=== PATIENT | female | born 1985 | race Caucasian/White ===

== ENCOUNTER 2020-10-21 16:24 | Inpatient (IN) | payer OTHER ==
[2020-10-21 18:00] VITALS: BMI 25.9
[2020-10-21] MEDS ORDERED: MAGNESIUM HYDROX 2400MG/30ML ORAL SUSPENSION 30 ML CUP PO PRN (19:36)
[2020-10-21] MEDS ORDERED: BISMUTH SUBSALICYLATE 524 MG/30 ML PO PRN (19:36)
[2020-10-21] MEDS ORDERED: MAG HYDROX/AL HYDROX/SIMETH 30 ML UNIT-DOSE CUP PO PRN (19:36)
[2020-10-21] MEDS ORDERED: IBUPROFEN 400 MG TABLET (FP) PO PRN (19:36)
[2020-10-21] MEDS ORDERED: METHOCARBAMOL 500 MG TABLET PO PRN (19:36)
[2020-10-21] MEDS ORDERED: MENTHOL/PHENOL 1 EACH UD MM PRN (19:36)
[2020-10-21] MEDS ORDERED: diazePAM 5 MG TABLET PO ONE (19:36)
[2020-10-21] MEDS ORDERED: MAGNESIUM CITRATE 300 ML BOTTLE PO PRN (19:36)
[2020-10-21] MEDS ORDERED: ACETAMINOPHEN 325 MG TABLET (FP) PO PRN ×2 (19:36)
[2020-10-21] MEDS: MELATONIN 5 MG TABLETS PO SCH (21:15)
[2020-10-21] MEDS: CLINDAMYCIN HCL 150 MG CAPSULE (FP) PO SCH (21:15)
[2020-10-21] MEDS: hydrOXYzine PAMOATE 25 MG CAPSULE (FP) PO SCH (21:15)
[2020-10-21] MEDS: THIAMINE HCL 100 MG TABLET (FP) PO SCH (21:15)
[2020-10-21] MEDS: NICOTINE 14 MG/24 HOURS TOPICAL PATCH TD SCH (21:18)
[2020-10-21] MEDS: PRENATAL VITAMINS W/ FOLIC ACID TABLET (FP) PO SCH (21:18)
[2020-10-21] MEDS: diazePAM 5 MG TABLET PO SCH (22:16)
[2020-10-22] MEDS: diazePAM 5 MG TABLET PO SCH ×4 (06:09→22:49)
[2020-10-22] MEDS: CLINDAMYCIN HCL 150 MG CAPSULE (FP) PO SCH ×3 (06:10→22:49)
[2020-10-22] MEDS: hydrOXYzine PAMOATE 25 MG CAPSULE (FP) PO SCH ×5 (06:10→22:49)
[2020-10-22 10:01] LABS: HEMOGLOBIN 9.7 GM/dL (10.7-15.3); MCH 25.1 pg (25.7-33.7); MCHC 32.1 g/dl (32.0-36.0); MEAN CELL VOLUME 78.1 fl (80-96); MEAN PLT VOLUME 8.5 fl (7.5-11.1); PLATELET COUNT 176 K/MM3 (134-434); RBC 3.85 M/mm3 (3.60-5.2); RDW 22.7 % (11.6-15.6); WHITE BLOOD COUNT 5.6 K/mm3 (4.0-10.0)
[2020-10-22 10:23] LABS: ALBUMIN 2.6 g/dl (3.4-5.0); BLOOD UREA NITROGEN 10.4 mg/dL (7-18)
[2020-10-22 10:25] LABS: CALCIUM 7.9 mg/dL (8.5-10.1)
[2020-10-22 10:26] LABS: CREATININE 0.7 mg/dL (0.55-1.3)
[2020-10-22 10:28] LABS: BILIRUBIN,TOTAL 0.5 mg/dL (0.2-1)
[2020-10-22 10:30] LABS: TOT PROT 5.3 g/dl (6.4-8.2)
[2020-10-22 10:59] LABS: HIV INTERPRETATION NEGATIVE (NEGATIVE)
[2020-10-22] MEDS: NICOTINE 14 MG/24 HOURS TOPICAL PATCH TD SCH (11:00)
[2020-10-22] MEDS: PRENATAL VITAMINS W/ FOLIC ACID TABLET (FP) PO SCH (11:00)
[2020-10-22] MEDS: diazePAM 5 MG TABLET PO PRN (15:22)
[2020-10-22] MEDS: FERROUS SO4 325 MG TABLET (FP) PO SCH (17:59)
[2020-10-22] MEDS: THIAMINE HCL 100 MG TABLET (FP) PO SCH (22:49)
[2020-10-22] MEDS: MELATONIN 5 MG TABLETS PO SCH (22:49)
[2020-10-22] MEDS: CALCIUM 500MG/VIT-D 200 UNITS COMBO TABLET (FP) PO SCH (22:49)
[2020-10-23] MEDS: CLINDAMYCIN HCL 150 MG CAPSULE (FP) PO SCH ×3 (05:11→22:26)
[2020-10-23] MEDS: diazePAM 5 MG TABLET PO SCH ×3 (05:11→22:26)
[2020-10-23] MEDS: hydrOXYzine PAMOATE 25 MG CAPSULE (FP) PO SCH ×5 (05:13→22:26)
[2020-10-23] MEDS: ONDANSETRON *ODT* 4 MG TABLET SL PRN (05:14)
[2020-10-23] MEDS: FERROUS SO4 325 MG TABLET (FP) PO SCH ×3 (08:25→17:48)
[2020-10-23] MEDS: ARIPiprazole 2 MG TABLET PO SCH (10:44)
[2020-10-23] MEDS: CALCIUM 500MG/VIT-D 200 UNITS COMBO TABLET (FP) PO SCH ×2 (10:44→22:26)
[2020-10-23] MEDS: PRENATAL VITAMINS W/ FOLIC ACID TABLET (FP) PO SCH (10:44)
[2020-10-23] MEDS: NICOTINE POLACRILEX 2 MG GUM BUC PRN ×2 (10:45→19:55)
[2020-10-23] MEDS: diazePAM 5 MG TABLET PO PRN (10:47)
[2020-10-23] MEDS: NICOTINE 14 MG/24 HOURS TOPICAL PATCH TD SCH (10:58)
[2020-10-23] MEDS: THIAMINE HCL 100 MG TABLET (FP) PO SCH (22:26)
[2020-10-23] MEDS: MELATONIN 5 MG TABLETS PO SCH (22:27)
[2020-10-24] MEDS: hydrOXYzine PAMOATE 25 MG CAPSULE (FP) PO SCH ×5 (06:06→21:46)
[2020-10-24] MEDS: diazePAM 5 MG TABLET PO SCH ×2 (06:06→17:31)
[2020-10-24] MEDS: CLINDAMYCIN HCL 150 MG CAPSULE (FP) PO SCH ×3 (06:06→21:45)
[2020-10-24] MEDS: FERROUS SO4 325 MG TABLET (FP) PO SCH ×3 (07:56→17:31)
[2020-10-24] MEDS: CALCIUM 500MG/VIT-D 200 UNITS COMBO TABLET (FP) PO SCH ×2 (10:15→21:45)
[2020-10-24] MEDS: ARIPiprazole 2 MG TABLET PO SCH (10:15)
[2020-10-24] MEDS: NICOTINE 14 MG/24 HOURS TOPICAL PATCH TD SCH (10:15)
[2020-10-24] MEDS: PRENATAL VITAMINS W/ FOLIC ACID TABLET (FP) PO SCH (10:16)
[2020-10-24] MEDS: NICOTINE POLACRILEX 2 MG GUM BUC PRN ×3 (13:48→18:59)
[2020-10-24] MEDS: ONDANSETRON *ODT* 4 MG TABLET SL PRN (17:34)
[2020-10-24] MEDS: THIAMINE HCL 100 MG TABLET (FP) PO SCH (21:45)
[2020-10-24] MEDS: MELATONIN 5 MG TABLETS PO SCH (21:45)
[2020-10-25] MEDS ORDERED: diazePAM 5 MG TABLET PO ONE (06:00)
[2020-10-25] MEDS: CLINDAMYCIN HCL 150 MG CAPSULE (FP) PO SCH (06:06)
[2020-10-25] MEDS: hydrOXYzine PAMOATE 25 MG CAPSULE (FP) PO SCH (06:06)
[2020-10-25] MEDS: NICOTINE POLACRILEX 2 MG GUM BUC PRN (09:34)
[2020-10-25 09:48] VITALS: BP 110/78; PULSE 65; TEMP 97.8
== END 2020-10-25 09:57 | disposition home or self-care (01) | DRG 775 ==
LOC: YASAS 16:24 → Y6N 20:18
PROVIDERS: ADMIT Allergy & Immunology; ATTEND Allergy & Immunology
PROC: HZ2ZZZZ Detoxification Services for Substance Abuse Treatment (ICD-10-PCS; principal; 2020-10-21)
DX: F10.230 Alcohol dependence with withdrawal, uncomplicated (principal); F12.10 Cannabis abuse, uncomplicated; F16.10 Hallucinogen abuse, uncomplicated; F17.210 Nicotine dependence, cigarettes, uncomplicated; F19.24 Other psychoactive substance dependence with psychoactive substance-induced mood disorder; F31.9 Bipolar disorder, unspecified; F43.10 Post-traumatic stress disorder, unspecified; D64.9 Anemia, unspecified; E83.51 Hypocalcemia; E28.2 Polycystic ovarian syndrome; L40.9 Psoriasis, unspecified; M32.9 Systemic lupus erythematosus, unspecified; M41.9 Scoliosis, unspecified; R76.11 Nonspecific reaction to tuberculin skin test without active tuberculosis; Z96.651 Presence of right artificial knee joint; Z88.5 Allergy status to narcotic agent; Z88.0 Allergy status to penicillin; Z91.030 Bee allergy status; Z86.69 Personal history of other diseases of the nervous system and sense organs; Z87.828 Personal history of other (healed) physical injury and trauma
CPT/HCPCS: 36415; 71046-TC-FY; 80053; 82728; 83550; 85027; 86780; 87389; 87522; C9803; Q0162; U0003; U0005

== ENCOUNTER 2023-06-15 15:15 | Inpatient (IN) | payer BC ==
[2023-06-15 15:41] VITALS: BMI 19.9
[2023-06-15] MEDS ORDERED: NALOXONE HCL 0.4 MG/ML VIAL IM PRN (16:32)
[2023-06-15] MEDS ORDERED: NALOXONE HCL (KLOXXADO) 8 MG SPRAY NS PRN (16:32)
[2023-06-15] MEDS ORDERED: IBUPROFEN 400 MG TABLET (FP) PO PRN (16:32)
[2023-06-15] MEDS ORDERED: POLYETHYLENE GLYCOL (HEALTHYLAX) 3350 17 GM PACKET PO PRN (16:32)
[2023-06-15] MEDS ORDERED: guaiFENesin 600 MG TABLET.ER (FP) PO PRN (16:32)
[2023-06-15] MEDS ORDERED: BENZOCAINE/MENTHOL (CHLORASEPTIC ) LOZENGE MM PRN (16:32)
[2023-06-15] MEDS ORDERED: MAG HYDROX/AL HYDROX/SIMETH 30 ML UNIT-DOSE CUP PO PRN (16:32)
[2023-06-15] MEDS ORDERED: LOPERAMIDE HCL 2 MG CAPSULE PO PRN (16:32)
[2023-06-15] MEDS ORDERED: MAGNESIUM HYDROX 2400MG/30ML ORAL SUSPENSION 30 ML CUP PO PRN (16:32)
[2023-06-15] MEDS ORDERED: BISMUTH SUBSALICYLATE 524 MG/30 ML PO PRN (16:32)
[2023-06-15] MEDS ORDERED: BENZONATATE 200 MG CAPSULE PO PRN (16:32)
[2023-06-15] MEDS ORDERED: IBUPROFEN 600 MG TABLET (FP) PO ONE (17:13)
[2023-06-15] MEDS ORDERED: chlordiazePOXIDE HCL 25 MG CAPSULE ONE (17:13)
[2023-06-15] MEDS: chlordiazePOXIDE HCL 25 MG CAPSULE PO SCH (17:14)
[2023-06-15] MEDS: IBUPROFEN 600 MG TABLET (FP) PO PRN (17:19)
[2023-06-15] MEDS: THIAMINE HCL 100 MG TABLET (FP) PO SCH (22:15)
[2023-06-15] MEDS: MELATONIN 5 MG TABLETS PO SCH (22:15)
[2023-06-15] MEDS: CLINDAMYCIN HCL 150 MG CAPSULE (FP) PO SCH (22:15)
[2023-06-15] MEDS: METHOCARBAMOL 500 MG TABLET PO PRN (22:16)
[2023-06-15] MEDS: hydrOXYzine PAMOATE 25 MG CAPSULE (FP) PO PRN (22:16)
[2023-06-16] MEDS: NICOTINE POLACRILEX 4 MG LOZENGE BC PRN (05:24)
[2023-06-16] MEDS: PRENATAL VITAMINS W/ FOLIC ACID TABLET (FP) PO SCH (10:06)
[2023-06-16] MEDS: methaDONE HCL 10 MG TABLET PO ONE (10:23)
[2023-06-16 11:56] LABS: HEMATOCRIT 25.8 % (32.4-45.2); HEMOGLOBIN 7.4 GM/dL (10.7-15.3); MCHC 28.8 g/dl (32.0-36.0); MEAN CELL VOLUME 61.9 fl (80-96); MEAN PLT VOLUME 9.1 fl (7.5-11.1); PLATELET COUNT 371 10^3/uL (134-434); RBC 4.18 M/mm3 (3.60-5.2); RDW 20.6 % (11.6-15.6); WHITE BLOOD COUNT 8.8 K/mm3 (4.0-10.0)
[2023-06-16 12:01] LABS: CHLORIDE 111 mmol/L (98-107); SODIUM 142 mmol/L (136-145)
[2023-06-16 12:08] LABS: MCH 17.8 pg (25.7-33.7)
[2023-06-16 12:17] LABS: ALBUMIN 2.6 g/dl (3.4-5.0); BLOOD UREA NITROGEN 23.2 mg/dL (7-18); GLUCOSE,RANDOM 58 mg/dL (74-106)
[2023-06-16 12:18] LABS: ANION GAP 6 mmol/L (4-13); CO2 25 mmol/L (21-32)
[2023-06-16 12:21] LABS: BILIRUBIN,TOTAL 0.2 mg/dL (0.2-1); CREATININE 0.8 mg/dL (0.55-1.3); SGOT/AST 19 U/L (15-37); SGPT/ALT 14 U/L (13-61); TOT PROT 6.1 g/dl (6.4-8.2)
[2023-06-16 12:23] LABS: ALK PHOS 63 U/L (45-117)
[2023-06-16] MEDS: chlordiazePOXIDE HCL 25 MG CAPSULE PO PRN (13:11)
[2023-06-16] MEDS: ARIPiprazole 2 MG TABLET PO SCH (14:06)
[2023-06-16] MEDS: DICYCLOMINE HCL 10 MG CAPSULE PO PRN (18:43)
[2023-06-16] MEDS: SUVOREXANT 10 MG TABLET PO PRN (22:05)
[2023-06-17] MEDS: chlordiazePOXIDE HCL 25 MG CAPSULE PO SCH (05:48)
[2023-06-17] MEDS ORDERED: methaDONE HCL 10 MG TABLET PO SCH (07:45)
[2023-06-17] MEDS: methaDONE 80 MG, methaDONE 20 MG PO SCH (07:54)
[2023-06-17] MEDS: ONDANSETRON *ODT* 4 MG TABLET SL PRN (10:17)
[2023-06-17] MEDS: BACITRACIN 0.9 GM PACKET TP SCH (19:22)
[2023-06-17] MEDS: ACETAMINOPHEN 325 MG TABLET (FP) PO PRN (22:12)
[2023-06-18] MEDS ORDERED: chlordiazePOXIDE HCL 10 MG CAPSULE PO PRN
[2023-06-18] MEDS: chlordiazePOXIDE HCL 10 MG CAPSULE PO SCH (05:35)
[2023-06-18] MEDS: CLINDAMYCIN HCL 150 MG CAPSULE (FP) PO SCH (06:27)
[2023-06-19] MEDS: chlordiazePOXIDE HCL 10 MG CAPSULE PO SCH (05:37)
[2023-06-19] MEDS: GABAPENTIN 400 MG CAPSULE PO SCH (13:14)
[2023-06-19] MEDS: SUVOREXANT 10 MG TABLET PO PRN (22:27)
[2023-06-20] MEDS: chlordiazePOXIDE HCL 10 MG CAPSULE PO ONE (05:16)
[2023-06-20 09:24] VITALS: PULSE 90; RESP 16; TEMP 98
[2023-06-20 13:16] VITALS: BP 134/72
== END 2023-06-20 13:22 | disposition home or self-care (01) | DRG 773 ==
LOC: YASAS 15:15 → Y3N 17:07
PROVIDERS: ADMIT Allergy & Immunology; ATTEND Family Medicine
PROC: HZ2ZZZZ Detoxification Services for Substance Abuse Treatment (ICD-10-PCS; principal; 2023-06-15)
DX: F10.230 Alcohol dependence with withdrawal, uncomplicated (principal); F11.20 Opioid dependence, uncomplicated; F14.20 Cocaine dependence, uncomplicated; F17.210 Nicotine dependence, cigarettes, uncomplicated; F19.280 Other psychoactive substance dependence with psychoactive substance-induced anxiety disorder; F19.282 Other psychoactive substance dependence with psychoactive substance-induced sleep disorder; F31.9 Bipolar disorder, unspecified; F43.10 Post-traumatic stress disorder, unspecified; D64.9 Anemia, unspecified; L02.611 Cutaneous abscess of right foot; Z62.810 Personal history of physical and sexual abuse in childhood; Z91.410 Personal history of adult physical and sexual abuse; Z63.0 Problems in relationship with spouse or partner; Z63.8 Other specified problems related to primary support group; Z88.0 Allergy status to penicillin; Z88.5 Allergy status to narcotic agent
CPT/HCPCS: 36415; 71046-TC-FY; 80053; 80307; 81025; 85027; 86780; 87635; 87811; Q0162

== ENCOUNTER 2023-06-20 13:30 | Inpatient (IN) | payer BC ==
[2023-06-20] MEDS ORDERED: LOPERAMIDE HCL 2 MG CAPSULE PO PRN (15:31)
[2023-06-20] MEDS ORDERED: AMMONIUM LACTATE 12% LOTION 225 GM BOTTLE TP PRN (15:31)
[2023-06-20] MEDS ORDERED: NALOXONE HCL (KLOXXADO) 8 MG SPRAY NS PRN (15:31)
[2023-06-20] MEDS ORDERED: guaiFENesin 600 MG TABLET.ER (FP) PO PRN (15:31)
[2023-06-20] MEDS ORDERED: BENZONATATE 200 MG CAPSULE PO PRN (15:31)
[2023-06-20] MEDS ORDERED: NALOXONE HCL 0.4 MG/ML VIAL IVPUSH PRN (15:31)
[2023-06-20] MEDS: GABAPENTIN 400 MG CAPSULE PO SCH (21:08)
[2023-06-20] MEDS: CLINDAMYCIN HCL 150 MG CAPSULE (FP) PO SCH (21:08)
[2023-06-20] MEDS: THIAMINE HCL 100 MG TABLET (FP) PO SCH (21:08)
[2023-06-20] MEDS: MELATONIN 5 MG TABLETS PO SCH (21:09)
[2023-06-20] MEDS: hydrOXYzine PAMOATE 25 MG CAPSULE (FP) PO PRN (21:10)
[2023-06-21] MEDS ORDERED: methaDONE HCL 40 MG DISPERSABLE TABLET PO SCH (06:00)
[2023-06-21] MEDS: methaDONE 80 MG, methaDONE 20 MG PO SCH (06:09)
[2023-06-21] MEDS: NICOTINE 21 MG/24 HOURS TOPICAL PATCH TD SCH (10:00)
[2023-06-21] MEDS: PRENATAL VITAMINS W/ FOLIC ACID TABLET (FP) PO SCH (10:00)
[2023-06-21] MEDS: NICOTINE POLACRILEX 4 MG GUM BUC PRN (10:01)
[2023-06-21] MEDS: BACITRACIN 0.9 GM PACKET TP SCH (10:01)
[2023-06-21] MEDS: ARIPiprazole 2 MG TABLET PO SCH (10:01)
[2023-06-21] MEDS: FLU VACCINE (FLULAVAL) PF 60 MCG/0.5 ML SYRINGE 2023-2024 IM ONE (11:07)
[2023-06-21 13:24] LABS: HIV INTERPRETATION NEGATIVE (NEGATIVE)
[2023-06-21] MEDS: IBUPROFEN 600 MG TABLET (FP) PO PRN (21:23)
[2023-06-22] MEDS: NICOTINE POLACRILEX 4 MG LOZENGE BC PRN (10:15)
[2023-06-22] MEDS: MAG HYDROX/AL HYDROX/SIMETH 30 ML UNIT-DOSE CUP PO PRN (10:37)
[2023-06-22] MEDS: MAGNESIUM HYDROX 2400MG/30ML ORAL SUSPENSION 30 ML CUP PO PRN (15:44)
[2023-06-22] MEDS: BACLOFEN 10 MG TABLET (FP) PO PRN (21:24)
[2023-06-22] MEDS: IBUPROFEN 400 MG TABLET (FP) PO PRN (21:25)
[2023-06-25 11:35] LABS: POTASSIUM 4.6 mmol/L (3.5-5.1)
[2023-06-25 11:39] LABS: BASO % 3.1 % (0-2.0); EOS % 2.2 % (0-4.5); HEMATOCRIT 23.3 % (32.4-45.2); LYMPH % 41.7 % (8-40); MCHC 28.3 g/dl (32.0-36.0); MEAN CELL VOLUME 62.3 fl (80-96); MEAN PLT VOLUME 8.4 fl (7.5-11.1); MONO % 10.1 % (3.8-10.2); NEUT % 42.9 % (42.8-82.8); PLATELET COUNT 452 10^3/uL (134-434); RBC 3.74 M/mm3 (3.60-5.2); RDW 20.6 % (11.6-15.6); WHITE BLOOD COUNT 5.6 K/mm3 (4.0-10.0)
[2023-06-25 11:40] LABS: BLOOD UREA NITROGEN 21.9 mg/dL (7-18); CALCIUM 8.3 mg/dL (8.5-10.1)
[2023-06-25 11:41] LABS: MAGNESIUM 2.1 mg/dL (1.8-2.4)
[2023-06-25 11:43] LABS: CREATININE 0.9 mg/dL (0.55-1.3)
[2023-06-25 11:44] LABS: BILIRUBIN,TOTAL 0.3 mg/dL (0.2-1); TOT PROT 6.7 g/dl (6.4-8.2)
[2023-06-25 11:45] LABS: ALBUMIN 3.2 g/dl (3.4-5.0)
[2023-06-25 11:49] LABS: MCH 17.6 pg (25.7-33.7)
[2023-06-25 11:53] LABS: HEMOGLOBIN 6.6 GM/dL (10.7-15.3)
[2023-06-25] MEDS: FERROUS SO4 325 MG TABLET (FP) PO SCH (14:13)
[2023-06-27] MEDS: METHOCARBAMOL 500 MG TABLET PO SCH (21:19)
[2023-07-01] MEDS: POLYETHYLENE GLYCOL (HEALTHYLAX) 3350 17 GM PACKET PO PRN (09:48)
[2023-07-03] MEDS ORDERED: NALTREXONE HCL 50 MG TABLET PO SCH (10:00)
[2023-07-03] MEDS: NALTREXONE HCL 50 MG TABLET PO ONE (11:00)
[2023-07-03] MEDS: DOCUSATE SODIUM 100 MG CAPSULE (FP) PO SCH (11:00)
[2023-07-03] MEDS: SENNOSIDES 8.6MG TABLET (FP) PO PRN (11:00)
[2023-07-03] MEDS ORDERED: BENZONATATE 200 MG CAPSULE PO PRN (11:36)
[2023-07-03] MEDS ORDERED: guaiFENesin 600 MG TABLET.ER (FP) PO PRN (11:36)
[2023-07-03] MEDS: ACETAMINOPHEN 325 MG TABLET (FP) PO PRN (11:51)
[2023-07-03] MEDS: ONDANSETRON *ODT* 4 MG TABLET SL PRN (11:52)
[2023-07-03] MEDS: DICYCLOMINE HCL 10 MG CAPSULE PO PRN (11:52)
[2023-07-03] MEDS: BISMUTH SUBSALICYLATE 524 MG/30 ML PO PRN (12:13)
[2023-07-03] MEDS: methaDONE HCL 10 MG TABLET PO ONE (13:59)
[2023-07-03] MEDS: cloNIDine HCL 0.1 MG TABLET PO SCH (13:59)
[2023-07-04] MEDS ORDERED: ACAMPROSATE CALCIUM 333 MG TABLET.DR PO SCH (10:00)
[2023-07-04] MEDS ORDERED: NALTREXONE HCL 50 MG TABLET PO SCH (10:00)
[2023-07-04 11:00] LABS: POTASSIUM 4.6 mmol/L (3.5-5.1)
[2023-07-04 11:11] LABS: HEMATOCRIT 23.4 % (32.4-45.2); MCHC 29.8 g/dl (32.0-36.0); MEAN CELL VOLUME 60.5 fl (80-96); MEAN PLT VOLUME 8.9 fl (7.5-11.1); PLATELET COUNT 351 10^3/uL (134-434); RBC 3.87 M/mm3 (3.60-5.2); RDW 20.6 % (11.6-15.6); WHITE BLOOD COUNT 6.2 K/mm3 (4.0-10.0)
[2023-07-04 11:12] LABS: ALBUMIN 3.3 g/dl (3.4-5.0); CALCIUM 8.3 mg/dL (8.5-10.1)
[2023-07-04 11:13] LABS: BLOOD UREA NITROGEN 19.5 mg/dL (7-18); CREATININE 0.8 mg/dL (0.55-1.3)
[2023-07-04 11:14] LABS: TOT PROT 6.7 g/dl (6.4-8.2)
[2023-07-04 11:15] LABS: BILIRUBIN,TOTAL 0.3 mg/dL (0.2-1)
[2023-07-04 11:30] LABS: ANISOCYTOSIS 2+; MACROCYTOSIS 0
[2023-07-04] MEDS: SUVOREXANT 10 MG TABLET PO PRN (21:08)
[2023-07-05] MEDS: ARIPiprazole 10 MG TABLET PO SCH (09:50)
[2023-07-05] MEDS: ACAMPROSATE CALCIUM 333 MG TABLET.DR PO SCH (09:55)
[2023-07-07] MEDS: SUVOREXANT 10 MG TABLET PO PRN (21:18)
[2023-07-10] MEDS: ACAMPROSATE CALCIUM 333 MG TABLET.DR PO SCH (21:23)
[2023-07-11] MEDS: SUVOREXANT 10 MG TABLET PO PRN (21:35)
[2023-07-12] MEDS: BENZOCAINE/MENTHOL (CHLORASEPTIC ) LOZENGE MM PRN (12:33)
[2023-07-14] MEDS: SUVOREXANT 10 MG TABLET PO PRN (21:22)
[2023-07-16] MEDS: SUVOREXANT 10 MG TABLET PO PRN (21:25)
[2023-07-18 07:00] VITALS: RESP 18
[2023-07-19] MEDS: SUVOREXANT 10 MG TABLET PO PRN (21:19)
[2023-07-22 07:25] VITALS: BP 132/71; PULSE 79; TEMP 97.8
== END 2023-07-22 10:50 | disposition other institution (70) | DRG 772 ==
LOC: YASAS 13:30 → Y5N 13:31
PROVIDERS: ADMIT Allergy & Immunology; ATTEND Psychiatry & Neurology Pain Medicine
PROC: HZ42ZZZ Group Counseling for Substance Abuse Treatment, Cognitive-Behavioral (ICD-10-PCS; principal; 2023-06-20)
DX: F10.20 Alcohol dependence, uncomplicated (principal); F11.20 Opioid dependence, uncomplicated; F14.20 Cocaine dependence, uncomplicated; F12.20 Cannabis dependence, uncomplicated; F17.210 Nicotine dependence, cigarettes, uncomplicated; F31.9 Bipolar disorder, unspecified; F43.10 Post-traumatic stress disorder, unspecified; F41.9 Anxiety disorder, unspecified; F41.0 Panic disorder [episodic paroxysmal anxiety]; D64.9 Anemia, unspecified; G47.00 Insomnia, unspecified; K29.00 Acute gastritis without bleeding; L97.511 Non-pressure chronic ulcer of other part of right foot limited to breakdown of skin; Z96.651 Presence of right artificial knee joint; Z98.84 Bariatric surgery status; Z88.0 Allergy status to penicillin; Z88.5 Allergy status to narcotic agent
CPT/HCPCS: 36415; 80053; 82140; 82652; 83735; 85025; 86803; 87389; 90686; G0008; J0475; Q0162

== ENCOUNTER 2023-08-20 21:28 | Inpatient (IN) | payer BC ==
[2023-08-20 21:44] VITALS: BMI 25.7
[2023-08-20] MEDS ORDERED: chlordiazePOXIDE HCL 25 MG CAPSULE PO PRN (22:02)
[2023-08-20] MEDS ORDERED: guaiFENesin 600 MG TABLET.ER (FP) PO PRN (22:03)
[2023-08-20] MEDS ORDERED: ONDANSETRON *ODT* 4 MG TABLET SL PRN (22:03)
[2023-08-20] MEDS ORDERED: MAGNESIUM HYDROX 2400MG/30ML ORAL SUSPENSION 30 ML CUP PO PRN (22:03)
[2023-08-20] MEDS ORDERED: NALOXONE HCL (KLOXXADO) 8 MG SPRAY NS PRN (22:03)
[2023-08-20] MEDS ORDERED: NICOTINE POLACRILEX 2 MG LOZENGE BC PRN (22:03)
[2023-08-20] MEDS ORDERED: POLYETHYLENE GLYCOL (HEALTHYLAX) 3350 17 GM PACKET PO PRN (22:03)
[2023-08-20] MEDS ORDERED: BISMUTH SUBSALICYLATE 524 MG/30 ML PO PRN (22:03)
[2023-08-20] MEDS ORDERED: P-EPHED 60MG/TRIPROLIDI 2.5MG TABLET PO PRN (22:03)
[2023-08-20] MEDS ORDERED: BENZONATATE 200 MG CAPSULE PO PRN (22:03)
[2023-08-20] MEDS ORDERED: NALOXONE HCL 0.4 MG/ML VIAL IM PRN (22:03)
[2023-08-20] MEDS ORDERED: LOPERAMIDE HCL 2 MG CAPSULE PO PRN (22:03)
[2023-08-20] MEDS ORDERED: MAG HYDROX/AL HYDROX/SIMETH 30 ML UNIT-DOSE CUP PO PRN (22:03)
[2023-08-20] MEDS ORDERED: IBUPROFEN 400 MG TABLET (FP) PO PRN (22:03)
[2023-08-20] MEDS ORDERED: DICYCLOMINE HCL 10 MG CAPSULE PO PRN (22:03)
[2023-08-20] MEDS ORDERED: IBUPROFEN 600 MG TABLET (FP) PO PRN (22:03)
[2023-08-20] MEDS ORDERED: BENZOCAINE/MENTHOL (CHLORASEPTIC ) LOZENGE MM PRN (22:03)
[2023-08-20] MEDS ORDERED: chlordiazePOXIDE HCL 25 MG CAPSULE ONE (22:39)
[2023-08-20] MEDS ORDERED: levETIRAcetam 500 MG TABLET (FP) PO ONE (22:39)
[2023-08-20] MEDS: levETIRAcetam 500 MG TABLET (FP) PO SCH (22:42)
[2023-08-20] MEDS: chlordiazePOXIDE HCL 25 MG CAPSULE PO SCH (22:42)
[2023-08-20] MEDS: METHOCARBAMOL 500 MG TABLET PO PRN (23:46)
[2023-08-20] MEDS: hydrOXYzine PAMOATE 25 MG CAPSULE (FP) PO PRN (23:46)
[2023-08-21] MEDS: NICOTINE POLACRILEX 2 MG GUM BUC PRN (05:40)
[2023-08-21] MEDS: PRENATAL VITAMINS W/ FOLIC ACID TABLET (FP) PO SCH (10:12)
[2023-08-21 11:58] LABS: HEMATOCRIT 29.5 % (32.4-45.2); HEMOGLOBIN 9.1 GM/dL (10.7-15.3); MCH 21.7 pg (25.7-33.7); MCHC 30.8 g/dl (32.0-36.0); MEAN CELL VOLUME 70.4 fl (80-96); PLATELET COUNT 214 10^3/uL (134-434); RDW 26.4 % (11.6-15.6); WHITE BLOOD COUNT 6.1 K/mm3 (4.0-10.0)
[2023-08-21 12:03] LABS: CHLORIDE 112 mmol/L (98-107); POTASSIUM 3.7 mmol/L (3.5-5.1); SODIUM 140 mmol/L (136-145)
[2023-08-21 12:22] LABS: ALBUMIN 3.1 g/dl (3.4-5.0); ANION GAP 5 mmol/L (4-13); BLOOD UREA NITROGEN 25.1 mg/dL (7-18); CALCIUM 8.2 mg/dL (8.5-10.1); CO2 24 mmol/L (21-32)
[2023-08-21 12:25] LABS: CREATININE 0.8 mg/dL (0.55-1.3); SGOT/AST 32 U/L (15-37); SGPT/ALT 19 U/L (13-61)
[2023-08-21 12:26] LABS: BILIRUBIN,TOTAL 0.2 mg/dL (0.2-1); GLUCOSE,RANDOM 47 mg/dL (74-106)
[2023-08-21 12:27] LABS: TOT PROT 5.8 g/dl (6.4-8.2)
[2023-08-21 12:28] LABS: ALK PHOS 57 U/L (45-117)
[2023-08-21] MEDS: ACETAMINOPHEN 325 MG TABLET (FP) PO ONE (15:48)
[2023-08-21] MEDS: MELATONIN 5 MG TABLETS PO SCH (22:20)
[2023-08-21] MEDS: THIAMINE HCL 100 MG TABLET (FP) PO SCH (22:20)
[2023-08-22] MEDS: chlordiazePOXIDE HCL 25 MG CAPSULE PO SCH (05:48)
[2023-08-22] MEDS ORDERED: methaDONE HCL 10 MG TABLET PO SCH (10:00)
[2023-08-22] MEDS: ACETAMINOPHEN 325 MG TABLET (FP) PO PRN (17:28)
[2023-08-23] MEDS ORDERED: chlordiazePOXIDE HCL 10 MG CAPSULE PO PRN
[2023-08-23] MEDS: chlordiazePOXIDE HCL 10 MG CAPSULE PO SCH (05:39)
[2023-08-24] MEDS: chlordiazePOXIDE HCL 10 MG CAPSULE PO SCH (05:30)
[2023-08-24] MEDS: FERROUS SO4 325 MG TABLET (FP) PO SCH (10:23)
[2023-08-25] MEDS: chlordiazePOXIDE HCL 10 MG CAPSULE PO ONE (05:23)
[2023-08-25 08:59] VITALS: BP 102/62; PULSE 60; RESP 16; TEMP 98.1
== END 2023-08-25 11:02 | disposition home or self-care (01) | DRG 773 ==
LOC: YASAS 21:28 → Y3N 22:38
PROVIDERS: ADMIT Allergy & Immunology; ATTEND Surgery
PROC: HZ2ZZZZ Detoxification Services for Substance Abuse Treatment (ICD-10-PCS; principal; 2023-08-20)
DX: F10.230 Alcohol dependence with withdrawal, uncomplicated (principal); F11.20 Opioid dependence, uncomplicated; F14.20 Cocaine dependence, uncomplicated; F12.20 Cannabis dependence, uncomplicated; F17.210 Nicotine dependence, cigarettes, uncomplicated; F31.9 Bipolar disorder, unspecified; D64.9 Anemia, unspecified; M32.9 Systemic lupus erythematosus, unspecified; M41.9 Scoliosis, unspecified; Z86.59 Personal history of other mental and behavioral disorders; Z86.39 Personal history of other endocrine, nutritional and metabolic disease; Z86.11 Personal history of tuberculosis; Z88.0 Allergy status to penicillin; Z88.8 Allergy status to other drugs, medicaments and biological substances
CPT/HCPCS: 36415; 80053; 80307; 81025; 82962; 85027; 86780